=== PATIENT | female | born 1985 | race African-American/Black ===

== ENCOUNTER 2017-07-28 20:12 | Outpatient (CLI) | payer BC | END 2017-07-28 21:05 | disposition home or self-care (01) | LOC: OBT 20:12 → L-D 20:12 → OBT 21:05 | DX: O62.9 Abnormality of forces of labor, unspecified (principal); Z3A.39 39 weeks gestation of pregnancy | CPT/HCPCS: G0463 ==

== ENCOUNTER → 2018-08-16 | Outpatient (CLI) | payer BC ==
[2018-08-16 08:27] LABS: ADD MAN DIFF? NO
[2018-08-16 08:31] LABS: WHITE BLOOD COUNT 6.4 10^3/ul (4.8-10.8)
[2018-08-16 08:31] LABS: BASOPHILS % 0.6 % (0.0-2.0); EOSINOPHILS # 0.1 10^3/ul (0.0-0.5); EOSINOPHILS % 1.4 % (0.0-7.0); HEMATOCRIT 34.5 % (37.0-47.0); LYMPHOCYTES # 1.9 10^3/ul (0.8-2.9); LYMPHOCYTES % 29.4 % (15.0-51.0); MEAN CORPUSCULAR HEMOGLOBIN 28.6 pg (29.0-33.0); MEAN CORPUSCULAR HGB CONC 31.9 g/dl (32.0-37.0); MEAN CORPUSCULAR VOLUME 89.6 fl (82.0-101.0); MEAN PLATELET VOLUME 10.7 fl (7.4-10.4); MONOCYTE # 0.6 10^3/ul (0.3-0.9); MONOCYTES % 8.8 % (0.0-11.0); NEUTROPHIL # 3.7 10^3/ul (1.6-7.5); PLATELET COUNT 183 10^3/UL (140-415); RED BLOOD COUNT 3.85 10^6/ul (4.20-5.40); RED CELL DISTRIBUTION WIDTH 14.6 % (11.5-14.5)
[2018-08-16 08:35] LABS: ADD UMIC YES; UR ASCORBIC ACID NEGATIVE (NEGATIVE); UR BACTERIA FEW /HPF (NONE SEEN); UR BILIRUBIN (Dip) NEGATIVE (NEGATIVE); UR BLOOD (Dip) 2+ mg/dL (NEGATIVE); UR CALCIUM OXALATE CRYSTAL MODERATE /HPF (NONE SEEN); UR CLARITY SLIGHTLY CLOUDY (CLEAR); UR COLOR YELLOW (YELLOW); UR GLUCOSE (Dip) NEGATIVE (NEGATIVE); UR KETONES (Dip) TRACE mg/dL (NEGATIVE); UR LEUKOCYTE ESTERASE (Dip) NEGATIVE Leu/ul (NEGATIVE); UR MUCUS MODERATE /HPF (NONE SEEN); UR NITRITE (Dip) NEGATIVE (NEGATIVE); UR RBC 4 /HPF (0-5); UR SPECIFIC GRAVITY (Dip) 1.036 (1.003-1.030); UR SQUAMOUS EPITHELIAL CELL FEW /HPF (FEW); UR TOTAL PROTEIN (Dip) 1+ mg/dl (NEGATIVE); UR UROBILINOGEN (Dip) 1+ mg/dL (NEGATIVE); UR WBC 2 /HPF (0-5)
[2018-08-16 09:19] LABS: HEPATITIS B SURFACE ANTIGEN NEGATIVE (NEGATIVE)
[2018-08-16 09:29] LABS: HIV 1&2 ANTIBODY NEGATIVE (NEGATIVE)
[2018-08-16 09:38] LABS: HEPATITIS C VIRAL ANTIBODY NEGATIVE (NEGATIVE)
[2018-08-16 15:10] LABS: RAPID PLASMA REAGIN NONREACTIVE (NR)
[2018-08-17 10:41] LABS: RUBELLA ANTIBODY - IGG 6.16 index; RUBELLA ANTIBODY - IGM <20.00 AU/mL
== END | disposition home or self-care (01) ==
LOC: LAB 07:41
DX: Z32.00 Encounter for pregnancy test, result unknown (principal)
CPT/HCPCS: 81001; 84443; 85025; 86592; 86703; 86762; 86803; 86850; 86900; 86901; 87340

== ENCOUNTER → 2018-11-27 | Outpatient (CLI) | payer BC ==
[2018-11-27 04:23] LABS: ADD MAN DIFF? NO
[2018-11-27 04:25] LABS: WHITE BLOOD COUNT 7.6 10^3/ul (4.8-10.8)
[2018-11-27 04:25] LABS: BASOPHILS % 0.4 % (0.0-2.0); EOSINOPHILS # 0.1 10^3/ul (0.0-0.5); EOSINOPHILS % 1.6 % (0.0-7.0); HEMOGLOBIN 9.6 g/dl (12.0-16.0); LYMPHOCYTES # 1.9 10^3/ul (0.8-2.9); LYMPHOCYTES % 24.2 % (15.0-51.0); MEAN CORPUSCULAR HEMOGLOBIN 27.4 pg (29.0-33.0); MEAN CORPUSCULAR VOLUME 88.3 fl (82.0-101.0); MEAN PLATELET VOLUME 11.5 fl (7.4-10.4); MONOCYTE # 0.7 10^3/ul (0.3-0.9); NEUTROPHIL # 4.8 10^3/ul (1.6-7.5); NEUTROPHILS % 62.7 % (39.0-77.0); PLATELET COUNT 154 10^3/UL (140-415); RED BLOOD COUNT 3.51 10^6/ul (4.20-5.40); RED CELL DISTRIBUTION WIDTH 13.5 % (11.5-14.5)
== END | disposition home or self-care (01) ==
LOC: LAB 02:14
DX: O24.419 Gestational diabetes mellitus in pregnancy, unspecified control (principal); Z3A.00 Weeks of gestation of pregnancy not specified
CPT/HCPCS: 82950; 85025

== ENCOUNTER 2019-02-15 05:57 | Inpatient (IN) | payer BC ==
[2019-02-15] MEDS ORDERED: IBUPROFEN 600 MG TAB PO (08:30)
[2019-02-15] MEDS ORDERED: BUTORPHANOL 2 MG INJ IV (08:30)
[2019-02-15] MEDS ORDERED: LIDOCAINE 1% (MPF) 30 ML INJ INJ (08:30)
[2019-02-15] MEDS ORDERED: OXYTOCIN 30 UNITS/LR 500 ML IV ×2 (08:30→17:30)
[2019-02-15] MEDS ORDERED: MISOPROSTOL 200 MCG TAB PR ×2 (08:30→17:30)
[2019-02-15] MEDS ORDERED: CARBOPROST 250 MCG INJ IM ×2 (08:30→17:30)
[2019-02-15] MEDS ORDERED: METHYLERGONOVINE 0.2 MG INJ IM ×2 (08:30→17:30)
[2019-02-15] MEDS: LACTATED RINGER'S 1,000 ML IV ×2 (08:42→21:24)
[2019-02-15] MEDS: AMPICILLIN 2 GM/NS (PMX) 100 ML IV (08:48)
[2019-02-15 08:57] LABS: ADD MAN DIFF? NO
[2019-02-15 09:14] LABS: BASOPHILS % 0.4 % (0.0-2.0); EOSINOPHILS # 0.1 10^3/ul (0.0-0.5); EOSINOPHILS % 0.9 % (0.0-7.0); HEMATOCRIT 29.4 % (37.0-47.0); LYMPHOCYTES # 1.5 10^3/ul (0.8-2.9); LYMPHOCYTES % 18.9 % (15.0-51.0); MEAN CORPUSCULAR HGB CONC 30.6 g/dl (32.0-37.0); MEAN CORPUSCULAR VOLUME 78.4 fl (82.0-101.0); MONOCYTE # 0.7 10^3/ul (0.3-0.9); MONOCYTES % 8.6 % (0.0-11.0); NEUTROPHIL # 5.4 10^3/ul (1.6-7.5); NEUTROPHILS % 70.4 % (39.0-77.0); PLATELET COUNT 136 10^3/UL (140-415); RED BLOOD COUNT 3.75 10^6/ul (4.20-5.40); RED CELL DISTRIBUTION WIDTH 16.4 % (11.5-14.5)
[2019-02-15 09:14] LABS: WHITE BLOOD COUNT 7.7 10^3/ul (4.8-10.8)
[2019-02-15] MEDS: BUTORPHANOL 2 MG INJ IV ×2 (09:16→12:40)
[2019-02-15 09:20] LABS: INR 0.92; PROTIME 12.5 Sec (11.9-14.9)
[2019-02-15 09:21] LABS: PARTIAL THROMBOPLASTIN TIME 28.8 Sec (23.0-35.0)
[2019-02-15 09:58] LABS: HIV 1&2 ANTIBODY NEGATIVE (NEGATIVE)
[2019-02-15] MEDS: OXYTOCIN 30 UNITS/LR 500 ML IV ×3 (12:04→14:46)
[2019-02-15] MEDS: AMPICILLIN 1 GM/NS (PMX) 50 ML IV (13:02)
[2019-02-15] MEDS ORDERED: ONDANSETRON 4 MG INJ IV (14:00)
[2019-02-15] MEDS ORDERED: DIPHENHYDRAMINE 50 MG INJ IV (14:00)
[2019-02-15] MEDS ORDERED: NALOXONE (0.4 MG/ML) INJ IV (14:00)
[2019-02-15] MEDS ORDERED: FENTAnyl 2MCG/ML-ROPIV 0.2% 100 ML BAG EPI (14:00)
[2019-02-15 15:50] LABS: RAPID PLASMA REAGIN NONREACTIVE (NR)
[2019-02-15] MEDS ORDERED: OXYCODONE/ASPIRIN (4.88/325) TAB PO ×2 (17:30)
[2019-02-15] MEDS ORDERED: ZOLPIDEM 5 MG TAB PO (17:30)
[2019-02-15] MEDS: IBUPROFEN 600 MG TAB PO ×2 (17:56→23:38)
[2019-02-15] MEDS: BENZOCAINE 20% 56 ML SPRAY TOP (17:57)
[2019-02-15] MEDS: LANOLIN HPA 1 PKT TOP (17:57)
[2019-02-15] MEDS: WITCH HAZEL/GLYCERIN PAD PR (17:57)
[2019-02-15] MEDS: SENNA/DOCUSATE NA (8.6MG/50MG) TAB PO (20:44)
[2019-02-16] MEDS: LACTATED RINGER'S 1,000 ML IV ×3 (05:00→21:00)
[2019-02-16] MEDS: IBUPROFEN 600 MG TAB PO ×4 (05:55→23:33)
[2019-02-16 08:14] LABS: ADD MAN DIFF? NO
[2019-02-16 08:28] LABS: ABNORMAL IP MESSAGE 1; BASOPHILS % 0.3 % (0.0-2.0); EOSINOPHILS # 0.1 10^3/ul (0.0-0.5); EOSINOPHILS % 0.8 % (0.0-7.0); HEMOGLOBIN 7.8 g/dl (12.0-16.0); LYMPHOCYTES # 1.4 10^3/ul (0.8-2.9); LYMPHOCYTES % 16.6 % (15.0-51.0); MEAN CORPUSCULAR HEMOGLOBIN 24.1 pg (29.0-33.0); MEAN CORPUSCULAR HGB CONC 31.2 g/dl (32.0-37.0); MEAN CORPUSCULAR VOLUME 77.4 fl (82.0-101.0); MEAN PLATELET VOLUME 12.5 fl (7.4-10.4); MONOCYTE # 0.7 10^3/ul (0.3-0.9); MONOCYTES % 8.6 % (0.0-11.0); NEUTROPHIL # 6.3 10^3/ul (1.6-7.5); PLATELET COUNT 116 10^3/UL (140-415); RED BLOOD COUNT 3.23 10^6/ul (4.20-5.40); RED CELL DISTRIBUTION WIDTH 16.1 % (11.5-14.5)
[2019-02-16 08:28] LABS: WHITE BLOOD COUNT 8.6 10^3/ul (4.8-10.8)
[2019-02-16] MEDS: SENNA/DOCUSATE NA (8.6MG/50MG) TAB PO ×2 (08:42→21:15)
[2019-02-16 08:45] LABS: POSITIVE DIFF @See below
[2019-02-16] MEDS: FERROUS GLUCONATE (EC) 325 MG TAB PO (21:15)
[2019-02-17] MEDS: LACTATED RINGER'S 1,000 ML IV (05:00)
[2019-02-17] MEDS: IBUPROFEN 600 MG TAB PO ×3 (05:46→17:32)
[2019-02-17] MEDS: DIPHTH/TET/ACEL PERTUSS (ADULT) 0.5 ML VIAL IM* (08:50)
[2019-02-17] MEDS: FERROUS GLUCONATE (EC) 325 MG TAB PO (09:19)
[2019-02-17] MEDS: SENNA/DOCUSATE NA (8.6MG/50MG) TAB PO (09:19)
== END 2019-02-17 18:10 | disposition home or self-care (01) | DRG 807 ==
LOC: OBT 05:57 → L-D 05:58 → OBT 08:24 → L-D 08:27 → PP1 17:21
PROVIDERS: Obstetrics & Gynecology
PROC: 10E0XZZ Delivery of Products of Conception, External Approach (ICD-10-PCS; principal; 2019-02-15)
PROC: 0HQ9XZZ Repair Perineum Skin, External Approach (ICD-10-PCS; 2019-02-15)
DX: O70.0 First degree perineal laceration during delivery (principal); Z37.0 Single live birth; Z3A.39 39 weeks gestation of pregnancy; O99.820 Streptococcus B carrier state complicating pregnancy
CPT/HCPCS: 85025; 85610; 85730; 86592; 86703; 86850; 86900; 86901